=== PATIENT | male | born 1950 | race African-American/Black ===

== ENCOUNTER → 2016-08-10 | Outpatient (CLI) | payer MEDICARE ==
[~2016-08-10] MED LIST: ADALAT CC PO; ALBUTEROL17 GM INH; DITROPAN PO; HCTZ PO; KEFLEX500 MG; LOSARTAN POTASS50 MG PO; METFORMIN HCL500 M1 PO; METFORMIN PO; NORVASC PO; PERCOCET5/325; TOPROL XL PO
--- NOTE | ~2016-08-10 | MR17 ---
[facility] A Service of [facility] RADIOLOGY TEXT RESULTS PATIENT: EUNICE SHORE LOCATION: CMRI : 49 UNIT #: [id number] AGE: [address]: Karl Venegas MD SEX: M ORDER DR: [id number] [facility] [address] [place], [place] [address] [id number] O MR#: [id number] Acc #: [id number] NAME: EUNICE SHORE. : 1950 SEX: M STUDY DATE/TIME: 08/10/2016 8:35 UNIT: [facility] ROOM: STUDY DESCRIPTION: MR Brain WWo Contrast Attending Physician: Karl Venegas M.D. Referring Physician: Karl Venegas M.D. Ordering Physician: Karl Venegas M.D. Primary Care Physician: Frantz Buck M.D. MRI CENTER REPORT This report is preliminary unless electronic signature is present. EXAM Brain MRI with and without contrast DATE OF STUDY 08/10/2016 PROCEDURE Routine brain MR with and without contrast. COMPARISON Prior MRI dated 01/23/2016. HISTORY In the left eye pain, vision loss and headache for 3 weeks. FINDINGS There is no MR evidence of acute ischemia. There are extensive symmetric white matter changes in the periventricular and subcortical regions but none show abnormal diffusion signal. Normal flow voids are seen in the cerebral vessels. There is no hydrocephalus or extraaxial fluid collection. Bone marrow signal is normal. Postcontrast images show no mass or abnormal enhancement. The extracranial soft tissues are unremarkable. IMPRESSION Extensive chronic white matter change, no acute abnormality. No evidence of acute ischemia, hemorrhage or mass or abnormal enhancement. No substantial interval change since the brain MRI of 01/23/2016. No acute findings. Dictated by... Naresh Blair M.D. [facility] A Service [facility] RADIOLOGY TEXT RESULTS PATIENT: EUNICE SHORE LOCATION: CMRI : 49 UNIT #: [id number] AGE: [address]: Karl Venegas MD SEX: M ORDER DR: THIS IS AN ELECTRONICALLY VERIFIED REPORT Naresh Blair M.D. at 08/13/2016 1:51 PM TEV/cs TD: 08/11/2016 11:23 JOB #: [id number] MRI CENTER REPORT Page 1 of 1 COPY
--- NOTE | ~2016-08-10 | MR148 ---
[facility] A Service of [facility] RADIOLOGY TEXT RESULTS PATIENT: EUNICE SHORE LOCATION: CMRI : 49 UNIT #: [id number] AGE: [address]: Karl Venegas MD SEX: M ORDER DR: [id number] [facility] [address] [place], [place] [address] [id number] O MR#: [id number] Acc #: [id number] NAME: EUNICE SHORE. : 1950 SEX: M STUDY DATE/TIME: 08/10/2016 8:56 UNIT: [facility] ROOM: STUDY DESCRIPTION: MR Orbit Face and or Neck WWo Attending Physician: Karl Venegas M.D. Referring Physician: Karl Venegas M.D. Ordering Physician: Karl Venegas M.D. Primary Care Physician: Frantz Buck M.D. MRI CENTER REPORT This report is preliminary unless electronic signature is present. EXAM Orbit MR with and without contrast 08/10/2016 HISTORY 3-week history of headache and painful vision loss. FINDINGS There is symmetric mild proptosis but no orbital mass. The nerve, muscles, lacrimal glands and fat and globes all appear normal. Optic nerves signal is normal. The supra and parasellar regions are normal though there is extensive nonspecific white matter change in the brain. Postcontrast images show no evidence of mass or abnormal enhancement in either orbit. IMPRESSION Mild symmetric proptosis otherwise normal orbit MR with and without contrast. Dictated by... Naresh Blair M.D. THIS IS AN ELECTRONICALLY VERIFIED REPORT Naresh Blair M.D. at 08/13/2016 1:51 PM TEV/una TD: 08/11/2016 11:28 JOB #: [id number] MRI CENTER REPORT Page 1 of 1 COPY
[2016-08-10 09:10] LABS: POC - CREATININE 1.54 mg/dL (0.64-1.27)
== END | disposition home or self-care (01) ==
LOC: CMRI 07:40
PROVIDERS: Ophthalmology
DX: H49.00 Third [oculomotor] nerve palsy, unspecified eye (principal); R90.82 White matter disease, unspecified
CPT/HCPCS: 70543; 70553; 82565; A9577